=== PATIENT | male | born 1975 | race Caucasian/White ===

== ENCOUNTER 2016-11-18 13:30 | Observation (INO) | payer SELFPAY ==
[2016-11-18] MEDS ORDERED: Sodium Chloride 0.9% 1,000 ML IV ONE ×2 (13:41→21:40)
--- NOTE | 2016-11-18 13:52 | C.PDOC ---
History Of Present Illness Patient is a male of unknown age, and unknown past medical history is brought to the emergency department by EMS after being found unresponsive at [facility]. EMS states that patient had strong EtOH odor. Unknown if involved in trauma or any other injury. No other history obtained at this time. No fever. Time Seen by Provider: 11/18/16 13:36 History Per: Patient History/Exam Limitations: intoxication Onset/Duration Of Symptoms: Gradual Current Symptoms Are (Timing): Still Present Recent travel outside of the [place]: No Additional History Per: EMS Past Medical History Reviewed: Historical Data, Nursing Documentation, Vital Signs Vital Signs: Last Vital Signs Temp 98 F 11/18/16 20:07 Pulse 90 11/18/16 20:07 Resp 18 11/18/16 20:07 BP 113/72 11/18/16 20:07 Pulse Ox 99 11/18/16 20:07 Family History: States: Unknown Family Hx Review Of Systems Review Of Systems: ROS cannot be obtained secondary to pt's inabilty to answer questions. Physical Exam - Physical Exam Appears: Non-toxic, Other (EtOH on breath) Skin: Normal Color, Warm, Dry Head: Atraumatic, Normacephalic Neck: Supple Chest: Symmetrical Extremity: Bilateral: Atraumatic Neurological/Psych: Other (Responsive to external rub) ED Course And Treatment - Laboratory Results Result Diagrams: 11/18/16 13:58 11/18/16 13:58 ECG: Interpreted By Me, Viewed By Me ECG Rhythm: Sinus Tachycardia ECG Interpretation: No Acute Changes Interpretation Of ECG: No ST wave changes. Rate From EC (bpm) Progress Note: Blood work, urinalysis, EKG, CXR, head CT ordered and reviewed. Patient was given IV fluids. Medical Decision Making Medical Decision Making: suspect etoh abuse - r/o other intracranial, metabolic abnormality 200: public service representative called in ct. went upstairs to find medical team assessing pt. pt had reports vomiting in ct. at bedisde, pt awaeka, alert, airway patent., pt brought to er in nad 300: pt seen ambultign to restroom, unsteady gait 500: pt sleeping in nad 800: pt in nad 1000: noted blood sugar. no h/o of diabeter. dextrose dosed. pt observed. mld tremor, librium dosed 1130: pt now observed 10 hours, clinically sober with steady gait. stable for d/ c Disposition - Disposition Disposition: HOME/ ROUTINE Disposition Time: 11:30 Condition: STABLE - Clinical Impression Clinical Impression: Alcohol abuse - Scribe Statement The provider has reviewed the documentation as recorded by the Isiahibjos Lees All medical record entries made by the Isiahibe were at my direction and personally dictated by me. I have reviewed the chart and agree that the record accurately reflects my personal performance of the history, physical exam, medical decision making, and the department course for this patient. I have also personally directed, reviewed, and agree with the discharge instructions and disposition.
[2016-11-18 14:05] LABS: BASO # 0.1 K/uL (0.0-0.2); BASO % 2.1 % (0.0-2.0); EOS # 0.1 K/uL (0.0-0.7); EOS % 3.6 % (0.0-4.0); LYMPH # 1.7 K/uL (1.0-4.3); LYMPH % 43.7 % (20.0-40.0); MEAN CELL VOLUME 88.8 fL (80.0-94.0); MEAN CORPUSCULAR HEMOGLOBIN 29.6 pg (27.0-31.0); MEAN CORPUSCULAR HGB CONC 33.3 g/dL (33.0-37.0); MONO # 0.3 K/uL (0.0-0.8); MONO % 7.6 % (0.0-10.0); NEUT # 1.7 K/uL (1.8-7.0); NRBC % 0.2 % (0.0-2.0); RBC 4.04 Mil/uL (4.40-5.90); RED CELL DISTRIBUTION WIDTH 17.3 % (11.5-14.5)
[2016-11-18 14:13] LABS: ALBUMIN 4.4 g/dL (3.5-5.0)
[2016-11-18 14:15] LABS: GFR AFRICAN-AMERICAN > 60; GFR NON-AFRICAN AMERICAN > 60
[2016-11-18 14:16] LABS: ALB/GLOB RATIO 1.4 (1.0-2.1); ALT/SGPT 22 U/L (21-72); AST/SGOT 28 U/L (17-59); BLOOD UREA NITROGEN 10 mg/dL (9-20); CALCIUM 8.5 mg/dl (8.6-10.4)
[2016-11-18 14:17] LABS: SALICYLATE < 1.0 mg/dL 1
[2016-11-18 14:19] LABS: ACETAMINOPHEN < 10.0 ug/mL (10.0-30.0)
--- NOTE | 2016-11-18 15:01 | RAD ---
HISTORY: Detox/Psy COMPARISON: None available. TECHNIQUE: Chest, one view. FINDINGS: External artifact projects over the upper chest/ lower neck. LUNGS: No focal consolidation. Please note that chest x-ray has limited sensitivity for the detection of pulmonary masses. PLEURA: No significant pleural effusion identified. No definite pneumothorax . CARDIOVASCULAR: The cardiomediastinal silhouette appears within normal limits of size. OSSEOUS STRUCTURES: Partially imaged cervical fusion hardware. No acute osseous abnormality identified. VISUALIZED UPPER ABDOMEN: Unremarkable. OTHER FINDINGS: None. IMPRESSION: No focal consolidation, significant pleural effusion, or definite pneumothorax identified.
--- NOTE | 2016-11-18 15:32 | CT ---
PROCEDURE: CT HEAD WITHOUT CONTRAST. HISTORY: ams COMPARISON: None available. TECHNIQUE: Axial computed tomography images were obtained through the head/brain without intravenous contrast. Radiation dose: Total exam DLP = 966.24 mGy-cm. This CT exam was performed using one or more of the following dose reduction techniques: Automated exposure control, adjustment of the mA and/or kV according to patient size, and/or use of iterative reconstruction technique. FINDINGS: HEMORRHAGE: No intracranial hemorrhage. BRAIN: No mass effect or edema. Mild scattered white matter hypodensities, which are nonspecific, but often seen with chronic microvascular ischemic disease. Please note that MRI with diffusion imaging is more sensitive in the detection of acute ischemic event. VENTRICLES: No hydrocephalus. CALVARIUM: Unremarkable. PARANASAL SINUSES: Mucosal thickening of the enmu-[id number]-coaq-right maxillary sinuses. Mucosal thickening of the ethmoid air cells. No air-fluid levels evident MASTOID AIR CELLS: Unremarkable as visualized. No inflammatory changes. OTHER FINDINGS: None. IMPRESSION: Mild nonspecific white matter changes. Mucosal thickening involving the [id number]-right maxillary sinuses well as the ethmoid air cells. Findings appear consistent with chronic sinusitis. Correlate clinically.
[2016-11-18 20:08] VITALS: TEMP 98; O2SAT 99
[2016-11-18] MEDS ORDERED: Dextrose 50% SYRINGE Inj (50 ml) ONE (20:44)
[2016-11-18 22:37] LABS: BARBITURATES, UR NEGATIVE (NEGATIVE)
[2016-11-18 22:38] LABS: BENZODIAZEPINES, UR NEGATIVE (NEGATIVE)
[2016-11-18 22:41] LABS: OPIATES, UR NEGATIVE (NEGATIVE)
[2016-11-18 22:42] LABS: PHENCYCLIDINE, UR NEGATIVE (NEGATIVE)
[2016-11-18 22:52] LABS: URINE BACTERIA RARE (<OCC); URINE BILIRUBIN NEGATIVE (NEGATIVE); URINE BLOOD NEGATIVE (NEGATIVE); URINE CLARITY Clear (Clear); URINE COLOR Yellow (YELLOW); URINE GLUCOSE (UA) 2+ mg/dL (Normal); URINE LEUKOCYTE ESTERASE NEG Leu/uL (Negative); URINE NITRATE NEGATIVE (NEGATIVE); URINE PROTEIN 1+ mg/dL (NEGATIVE); URINE UROBILINOGEN NORMAL mg/dL (0.2-1.0)
[2016-11-18 23:13] VITALS: BP 118/75; PULSE 76; RESP 12
--- NOTE | 2016-11-19 13:01 | CARD ---
APPROVED REPORT EKG Measurement Heart [id number] <Conclusion> Sinus tachycardia Otherwise normal ECG
== END 2016-11-18 23:11 | disposition home or self-care (01) ==
LOC: C.ER 13:30 → EDBD 13:30 → C.9OBSV 15:37
PROVIDERS: ADMIT Student in an Organized Health Care Education/Training Program; ATTEND Student in an Organized Health Care Education/Training Program
DX: F10.120 Alcohol abuse with intoxication, uncomplicated (principal); Y90.8 Blood alcohol level of 240 mg/100 ml or more
CPT/HCPCS: 70450; 71010; 80053; 81001; 82550; 82948; 85025; 96360; G0378; G0480